=== PATIENT | male | born 1985 | race Two or more races ===

== ENCOUNTER 2023-03-05 12:45 | Emergency (ER) | payer OTHER ==
[~2023-03-05] VITALS: Ht 180.3 cm; Wt 54.2 kg
[2023-03-05 14:07] VITALS: BP 114/68; PULSE 115; RESP 12; O2SAT 98
[2023-03-05] MEDS ORDERED: ACETAMINOPHEN 500 MG TAB PO ONE (15:00)
[2023-03-05 15:43] VITALS: TEMP 97.9
[2023-03-05] MEDS ORDERED: METH-1181 PO ×5 (15:47→18:27)
[2023-03-05] MEDS ORDERED: NAPR-746 PO ×4 (15:47→16:44)
[2023-03-05] MEDS ORDERED: NAP500T PO (18:27)
== END 2023-03-05 15:59 | disposition home or self-care (01) ==
LOC: ER 12:45
DX: S46.912A Strain of unspecified muscle, fascia and tendon at shoulder and upper arm level, left arm, initial encounter (principal); S76.012A Strain of muscle, fascia and tendon of left hip, initial encounter; F20.9 Schizophrenia, unspecified; F17.210 Nicotine dependence, cigarettes, uncomplicated; F12.90 Cannabis use, unspecified, uncomplicated; F15.90 Other stimulant use, unspecified, uncomplicated; X58.XXXA Exposure to other specified factors, initial encounter; Y93.01 Activity, walking, marching and hiking; Y92.89 Other specified places as the place of occurrence of the external cause; Y99.8 Other external cause status
CPT/HCPCS: 73030; 73502